=== PATIENT | female | born 2005 | race Caucasian/White ===

== ENCOUNTER 2023-10-28 19:53 | Emergency (ER) | payer BC, SELFPAY ==
[2023-10-28 19:55] VITALS: BP 133/89
[2023-10-28 20:15] LABS: % Eosinophils 0.1 % (0-6); % Immature Granulocytes 0.3 % (0-0.5); % Lymphocytes 16.4 % (20.5-51.1); % Neutrophils 73.2 % (42.2-75.2); Absolute Basophils 0.1 10^3/uL (0-0.2); Absolute Lymphocytes 1.2 10^3/uL (1.2-3.4); Absolute Monocytes 0.7 10^3/uL (0.1-0.6); Absolute Neutrophils 5.3 10^3/uL (1.4-6.5); Hematocrit 37.4 % (37.0-47.0); Hemoglobin 13.5 g/dL (12.0-16.0); Mean Corp Hgb Conc. 36.1 g/dL (33.0-37.0); Mean Corpuscular Hgb 29.9 pg (27.0-31.0); Mean Corpuscular Volume 82.9 fL (81.0-99.0); Mean Platelet Volume 9.9 fL (7.4-10.4); Nucleated Red Blood Cells % 0 %; Platelet Count 207 10^3/uL (130-400); Red Blood Cell Count 4.51 10^6/uL (4.20-5.40); Red Cell Dist. Width 12.8 % (11.5-14.5); White Blood Cell Count 7.3 10^3/uL (4.8-10.8)
[2023-10-28 20:35] LABS: ALT (SGPT) 14 U/L (0-35); AST (SGOT) 25 U/L (14-36); Albumin 4.3 g/dl (3.5-5.0); Alkaline Phosphatase 63 U/L (38-126); Blood Urea Nitrogen 8 mg/dl (7-17); Calcium 9.2 mg/dl (8.4-10.2); Carbon Dioxide 19 mmol/L (22-30); Chloride 98 mmol/L (98-107); Glucose 104 mg/dl (70-99); Potassium 3.5 mmol/L (3.5-5.1); Sodium 132 mmol/L (135-145); Total Bilirubin 0.7 mg/dl (0.2-1.3); Total Protein 7.2 g/dl (6.3-8.2); eGFR > 60.00
[2023-10-28 20:39] LABS: Troponin I < 0.012 ng/ml
[2023-10-28 20:51] LABS: COVID-19 Antigen Negative (Negative)
[2023-10-29 00:10] VITALS: BP 113/62; BMI 23.0
[2023-10-29] MEDS: TYLENOL 1000 MG PO (00:27)
--- NOTE | 2023-10-29 00:56 | ED.GENMED ---
History of Present Illness
General
Chief Complaint: Chest Pain
Source: patient
Exam Limitations: none
Time Seen by Provider: 10/28/23 22:46
Travel History
Have you had any contact with someone who has COVID-19?: No
Do you have any symptoms of coronavirus? Fever > 100 degrees, chills, cough, shortness of breath, sore throat, loss of taste or smell, muscle aches, or headache?: No
History of Present Illness
History of Present Illness:
This is a 18yo female who presents with cough, cp, sob, and burning in her throat. also with fever at home. no vomiting. no diarrhea. cp is mostly when she sits up. CP started yesterday as did her other symptoms. now feels a bit better.
Past History
Past History
ED Past Medical History: None
Phy Exam
Physical Exam
Physical Exam:
CONSTITUTIONAL Patient alert and oriented to person, place and time. Well-appearing. Vital signs reviewed.
HEAD atraumatic, normocephalic.
EYES eyelids normal to inspection, Pupils equally round and reactive to light, Extraocular muscles intact, Conjunctiva normal, Sclera normal.
NECK normal range of motion, Trachea midline, no jugular venous distention.
RESPIRATORY CHEST No respiratory distress noted, Chest expansion equal, Bilateral breath sounds clear.
CARDIOVASCULAR regular rate and rhythm, Heart sounds normal.
ABDOMEN abdomen nontender, Bowel sounds normal. No distention.
BACK normal inspection, no obvious deformities
UPPER EXTREMITY range of motion normal, Motor strength normal, no cyanosis, no edema.
LOWER EXTREMITY range of motion normal, Motor strength normal, no cyanosis, no edema.
NEURO Speech normal, No focal motor deficits, [place] coma scale 15, Memory normal, Cranial Nerves intact to screening exam.
SKIN skin warm, dry, and normal in color.
PSYCHIATRIC patient oriented to person place and time, Normal affect.
Scores
Heart Score for Chest Pain Patients
STEMI patient?: Not applicable
Course
Orders/Labs/Results
Orders:
Orders
10/28/23 19:57
Electrocardiogram (*1) Urgent
Reason for Study: Chest Pain
10/28/23 19:58
EKG- Treatment ONCE
10/28/23 20:02
COVID-19 Antigen Urgent
Source: Nasal Swab
Complete Blood Count/With Diff Urgent
Comprehensive Metabolic Panel Urgent
Troponin I Urgent
Influenza A+B Rapid Molecular Urgent
ALVARO Source: Nasal Swab
Specimen Description:
10/28/23 22:46
Chest [CR Chest - 2 Views ] Stat
Comment:
Reason For Exam: cough, cp
10/28/23 23:18
Acetaminophen [Tylenol] 1,000 mg PO NOW STA
Abnormal Lab Results
10/28/23
20:02
Absolute Monos (auto) 0.7 H 10^3/uL
(0.1-0.6)
Lymphocytes % 16.4 L %
(20.5-51.1)
Sodium 132 L mmol/L
(135-145)
Carbon Dioxide 19 L mmol/L
(22-30)
Glucose 104 H mg/dl
(70-99)
10/28/23 20:02
10/28/23 20:02
Vital Signs
Initial and Last Documented VS:
Initial Vital Signs
Temp Pulse Resp BP Pulse Ox
99.3 F 129 18 133/89 98
10/28/23 19:55 10/28/23 19:55 10/28/23 19:55 10/28/23 19:55 10/28/23 19:55
Last Documented Vital Signs
Temp Pulse Resp BP Pulse Ox
98.9 F 91 19 112/63 97
10/29/23 01:25 10/29/23 01:25 10/29/23 01:25 10/29/23 01:25 10/29/23 01:25
MDM/Problems Addressed
MDM/Problems Addressed:
Influenza, cp
*Radiology
Radiology exam reviewed: preliminary read by ED provider and all reviewed NAD by ED Provider
*Pulse Oximetry
Patient hypoxic: no
*EKG
Interpreted by ED Provider?: Yes
Interpretation: normal
Rate: normal
Rhythm: sinus
[place]: normal axis
Interval: normal interval
QRS Pattern: normal QRS
Ischemia: non-specific ST changes
*Critical Care Note
Total Time (30-74mins, 75-104mins- exclusive of procedures): Not Applicable
Data Reviewed
Source: patient
Prescriptions/Medications Considered But Not Given:
Consider Tamiflu but long discussion with the patient who would like to forego Tamiflu at this time which I think is reasonable
Patient Management
Escalation/DeEscalation of care consider admission/obs:
Troponin negative despite symptoms since yesterday. Chest x-ray unremarkable. Tylenol and ibuprofen for fever control. Outpatient management.
ED Attending Note
-
Portions of this chart may have been created with voice recognition software.� Occasional wrong word or��sound alike� substitutions may have occurred due to the inherent limitations of voice recognition software.
Discharge Plan
Departure
Patient Disposition: Home (Routine Discharge)
Date of Disposition: 10/29/23
Time of Disposition: 00:57
Patient with high blood pressure during this ER visit?: No
Discharge Problem:
Influenza
Instructions: Flu
Prescriptions:
No Action
No Current Medications
0
Referrals:
Kathryn López MD [Family Provider] -
Activity Restrictions/Additional Instructions:
Please use Tylenol and ibuprofen for fever control. Drink plenty fluids. Use vitamin C and vitamin D as discussed. Return for worsening symptoms, shortness of or any other concerns.
Interventions
Interventions:
*Risk Screen - Suicide Last Done: 10/28/23 22:45
*General Assessment Last Done: 10/28/23 22:45
*Neglect/Abuse Screening Last Done: 10/28/23 22:45
ED- Fall Risk Assessment Last Done: 10/28/23 22:45
*ED COVID-19 Vaccine History Last Done: 10/28/23 19:56
*Nursing Disposition Last Done: 10/29/23 01:26
ED- Cardiac Assessment Last Done: 10/28/23 22:45
Discharge Date and Time
Discharge Date/Time: 10/29/23 01:27
[2023-10-29 01:25] VITALS: BP 112/63
== END 2023-10-29 01:27 | disposition home or self-care (01) ==
LOC: EMR 19:53
PROVIDERS: Emergency Medicine; EMERGENCY PHYSICIAN Emergency Medicine; FAMILY PHYSICIAN Pediatrics
DX: J10.1 Influenza due to other identified influenza virus with other respiratory manifestations (principal)
CPT/HCPCS: 99284; 71046; 80053; 84484; 85025; 87502; 87811; 93005